=== PATIENT | male | born 1965 | race Caucasian/White ===

== ENCOUNTER 2017-07-24 14:31 | Emergency (ER) | payer MEDICARE ==
[~2017-07-24] VITALS: Ht 182.9 cm; Wt 101.5 kg
[~2017-07-24 14:31] MED LIST: ATEN-102 PO; FLEX10TA PO; HYDR-3129 PO; IBUP800T23 PO; NEUR300C PO; OMPR20CCR PO
[2017-07-24 14:45] VITALS: BP 163/106; PULSE 112; RESP 16; TEMP 97.9; O2SAT 98
[2017-07-24] MEDS ORDERED: MELO7.5T4 PO (15:11)
[2017-07-24] MEDS ORDERED: ATEN50TA PO (15:11)
[2017-07-24] MEDS ORDERED: HYDR-3583 PO (15:11)
[2017-07-24] MEDS ORDERED: DULC100C PO (15:11)
[2017-07-24] MEDS ORDERED: GABA400C5 PO (15:11)
--- NOTE | 2017-07-24 15:35 | RADRPT ---
EXAM DATE/TIME: 07/24/2017 15:15 [facility] COMPARISON: NAVICULAR VIEWS RIGHT, April 26, 2015, 15:55. INDICATIONS : Right knee pain for 3 days. Patient heard a "pop". MEDICAL HISTORY : None. SURGICAL HISTORY : ACL repair. ENCOUNTER: Initial ACUITY: 3 days PAIN SCORE: 10/10 LOCATION: Right knee. FINDINGS: The patient is post ACL reconstruction. There is moderate tricompartmental osteoarthritis with a small joint effusion. No acute fracture is seen. CONCLUSION: 1. Post ACL reconstruction. 2. Moderate tricompartmental osteoarthritis. Rafa Murillo MD on July 24, 2017 at 15:33 Board Certified Radiologist. This report was verified electronically.
[2017-07-24] MEDS ORDERED: KETOROLAC TROMETHAMINE 60 MG/2 ML (IM) VIAL IM ONE (16:00)
--- NOTE | 2017-07-24 16:02 | PD ---
HPI . Right knee pain Chief Complaint: Musculoskeletal Complaint Time Seen by Provider: 14:54 Travel History International Travel<30 days: No Contact w/Intl Traveler<30days: No Traveled to known affect area: No History of Present Illness HPI 51-year-old male patient presents emergency department for evaluation of right knee pain. Patient states that pain happened a couple weeks ago spontaneously. Patient denies any injury or trauma to the knee. He states his only major medical history is hypertension and he takes medication for that daily. Patient does not have any allergies. Patient states he can walk with a limp. Neurovascularly the right leg is intact. The right knee is swollen. No erythema, ecchymosis or cyanosis noted. PFSH Past Medical History Diminished Hearing: No GERD: Yes Hypertension: Yes Insomnia: Yes Past Surgical History Abdominal Surgery: Yes ( A CHILD HAD A STOMACH INFECTION AND HAD BELLY BUTTON REMOVED) Tonsillectomy: Yes Other Surgery: Yes (ACDF SX) Social History Alcohol Use: No Tobacco Use: Yes (1 PPD) Substance Use: No Allergies-Medications (Allergen,Severity, Reaction): Coded Allergies: No Known Allergies (Unverified , 07/24/17) Reported Meds & Prescriptions Reported Meds & Active Scripts Active Diclofenac Topical 1% Gel 1 Applic TOPICAL QID 7 Days Reported Dulcolax Stool Softener (Docusate Sodium) 100 Mg Cap 100 Mg PO BID Gabapentin 400 Mg Cap 400 Cap PO HS Meloxicam 7.5 Mg Tab 7.5 Mg PO DAILY Atenolol 50 Mg Tab 50 Mg PO DAILY Hydrocodone-Acetaminophen 10-325 mg Tab 1 Tab PO Q4H PRN Review of Systems Except as stated in HPI: all other systems reviewed are Neg Physical Exam Narrative GENERAL: Well-nourished, well-developed 51-year-old male patient in no acute distress. Nontoxic appearing. SKIN: Focused skin assessment warm/dry. HEAD: Normocephalic. Atraumatic. EYES: No scleral icterus. No injection or drainage. NECK: Supple, trachea midline. No JVD or lymphadenopathy. CARDIOVASCULAR: Regular rate and rhythm without murmurs, gallops, or rubs. Bilateral 2+ pedal pulses. RESPIRATORY: Breath sounds equal bilaterally. No accessory muscle use. GASTROINTESTINAL: Abdomen soft, non-tender, nondistended. MUSCULOSKELETAL: Right knee moderately swollen. Limited range of motion with flexion. Patient can fully extend the knee. No ecchymosis, erythema, cyanosis noted. BACK: Nontender without obvious deformity. No CVA tenderness. Data Data Last Documented VS Vital Signs Date Time Temp Pulse Resp B/P (MAP) Pulse Ox O2 Delivery O2 Flow Rate FiO2 07/24/17 14:45 97.9 112 16 163/106 (125) 98 Orders Orders Knee, Complete (4vws) (07/24/17 14:58) Ice/Cold Pack (07/24/17 14:58) Ketorolac Inj (Toradol Inj) (07/24/17 16:00) Splint Or Brace Apply/Monitor (07/24/17 16:17) [facility] Medical Decision Making Medical Screen Exam Complete: Yes Emergency Medical Condition: Yes Differential Diagnosis Differential diagnoses include but are not limited to osteoarthritis, knee contusion, rheumatoid arthritis, patellar dislocation Narrative Course 51-year-old male presents emergency department for evaluation of right knee pain that started spontaneously. Patient is able to ambulate with a limp. Patient's only major medical history is hypertension and he takes an antihypertensive medication daily. X-ray of the right knee ordered and shows moderate tricompartmental osteoarthritis. Based on patient's symptoms, clinical presentation, radiological results, vital sign review and physical exam it is not necessary to admit the patient to the hospital or keep the patient in the emergency department for further evaluation. Patient will be given an IM injection of Toradol, and a prescription for topical diclofenac gel and discharged home with instructions to follow-up with his primary care. Diagnosis Primary Impression: Osteoarthritis of knee Qualified Codes: M17.11 - Unilateral primary osteoarthritis, right knee Referrals: Primary Care Physician Patient Instructions: General Instructions, Osteoarthritis (DC) Additional Instructions: Please return to emergency department if your symptoms return or worsen. Follow up with your primary care provider. Take medications as prescribed. Apply ice to right knee. May use Alejo wrap to right knee. May take [id number] Motrin as needed for pain and swelling. Med/Other Pt SpecificInfo: Prescription(s) given Scripts Diclofenac Topical (Diclofenac Topical) 1% Gel 1 APPLIC TOPICAL QID for Pain Management for 7 Days, #100 GM 0 Refills Prov: Zuleika Pimentel 07/24/17 Disposition: 01 DISCHARGE HOME Condition: Stable Zuleika Pimentel Jul 24, 2017 16:02
[2017-07-24] MEDS ORDERED: DICL1GEL7 TOPICAL ×2 (16:14→16:28)
== END 2017-07-24 16:43 | disposition home or self-care (01) ==
LOC: PHEFT 14:31
DX: M17.11 Unilateral primary osteoarthritis, right knee (principal); M25.561 Pain in right knee; I10 Essential (primary) hypertension; K21.9 Gastro-esophageal reflux disease without esophagitis; F17.200 Nicotine dependence, unspecified, uncomplicated; Z79.899 Other long term (current) drug therapy
CPT/HCPCS: 73564; 96372; 99284; J1885

== ENCOUNTER 2017-12-05 09:14 | Emergency (ER) | payer MEDICARE ==
[~2017-12-05] VITALS: Ht 182.9 cm; Wt 100.0 kg
[~2017-12-05 09:14] MED LIST changes: -ATEN-102 PO; +ATEN50TA PO; +DICL1GEL7 TOPICAL; +DULC100C PO; -FLEX10TA PO; +GABA400C5 PO; -HYDR-3129 PO; +HYDR-3583 PO; -IBUP800T23 PO; +MELO7.5T27 PO; -NEUR300C PO; -OMPR20CCR PO
[2017-12-05 09:23] VITALS: BP 183/116; PULSE 104; RESP 18; TEMP 98.4; O2SAT 99
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
[2017-12-05] MEDS ORDERED: DEXAMETHASONE SOD PHOS 20 MG/5 ML VIAL IM ONE (09:45)
[2017-12-05] MEDS ORDERED: KETOROLAC TROMETHAMINE 60 MG/2 ML (IM) VIAL IM ONE (09:45)
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
== END 2017-12-05 10:35 | disposition home or self-care (01) ==
LOC: PHEFT 09:14
DX: M25.511 Pain in right shoulder (principal); I10 Essential (primary) hypertension; F17.210 Nicotine dependence, cigarettes, uncomplicated
CPT/HCPCS: 73030; 96372; 99283; J1100

== ENCOUNTER 2017-12-07 21:28 | Emergency (ER) | payer MEDICARE ==
[~2017-12-07] VITALS: Ht 182.9 cm; Wt 101.0 kg
[~2017-12-07 21:28] MED LIST changes: -DICL1GEL7 TOPICAL; -HYDR-3583 PO; -MELO7.5T27 PO
[2017-12-07 22:18] VITALS: BP 168/87; PULSE 75; RESP 18; TEMP 97.8; O2SAT 98
[2017-12-07] MEDS ORDERED: OMEP10CA PO (23:25)
[2017-12-07] MEDS ORDERED: HYDR-3583 PO (23:25)
[2017-12-07] MEDS ORDERED: TAMS5CAP PO (23:25)
[2017-12-07] MEDS ORDERED: MELO7.5T27 PO (23:25)
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
[2017-12-08] MEDS ORDERED: IBUP1TAB7 PO (01:23)
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
[2017-12-08] MEDS ORDERED: KETOROLAC TROMETHAMINE 60 MG/2 ML (IM) VIAL IM ONE (01:30)
[2017-12-08 01:51] VITALS: BP 154/82
== END 2017-12-08 01:54 | disposition home or self-care (01) ==
LOC: PHED 21:28
DX: M71.9 Bursopathy, unspecified (principal); K21.9 Gastro-esophageal reflux disease without esophagitis; I10 Essential (primary) hypertension; G47.00 Insomnia, unspecified; F17.200 Nicotine dependence, unspecified, uncomplicated
CPT/HCPCS: 73030; 96372; 99283; J1885